=== PATIENT | male | born 1975 | race African-American/Black ===

== ENCOUNTER 2018-01-11 20:35 | Inpatient (IN) ==
[2018-01-11] MEDS ORDERED: VANCOMYCIN INJ 1,000 MG in SODIUM CHLORIDE 0.9% 250 ML IV STA (20:55)
[2018-01-11] MEDS ORDERED: ONDANSETRON 4 MG/2 ML VIAL IV STA (20:58)
[2018-01-11] MEDS ORDERED: SODIUM CHLORIDE 0.9% 1,000 ML IV STA (20:58)
[2018-01-11] MEDS ORDERED: VANCOMYCIN 1,000 MG VIAL ONE (21:02)
[2018-01-11] MEDS ORDERED: ONDANSETRON 4 MG/2 ML VIAL ONE (21:02)
[2018-01-11 21:52] LABS: Calcium 8.4 MG/DL (8.5-10.1); Osmolality,Calculated 276.4 MOS/KG (273-304); Potassium 3.7 MMOL/L (3.5-5.1)
[2018-01-11] MEDS ORDERED: DEXTROSE 50% 25 GM/50 ML VIAL IV PRN (22:10)
[2018-01-11] MEDS ORDERED: MORPHINE 4 MG/1 ML VIAL IV PRN (22:10)
[2018-01-11] MEDS ORDERED: GLUCAGON 1 MG VIAL IM PRN (22:10)
[2018-01-11] MEDS ORDERED: ATENOLOL PO SCH (22:15)
[2018-01-11] MEDS: SODIUM CHLORIDE 0.9% 1,000 ML IV SCH (23:42)
[2018-01-12] MEDS: PIPERACILLIN/TAZOBACTAM 3,375 MG in SODIUM CHLORIDE 0.9% 100 ML IV SCH ×3 (00:01→15:45)
[2018-01-12] MEDS: GLIMEPIRIDE 2 MG TABLET PO SCH ×3 (00:05→21:23)
[2018-01-12 06:39] LABS: Basophils % 0.2 % (0.0-0.8); Eosinophils # 0.2 10*3/uL (0.0-0.87); Eosinophils % 1.4 % (0.00-10.9); Hematocrit 33.8 VOL% (42.0-52.0); Hemoglobin 11.1 GM/DL (14.0-18.0); Immature Granulocytes % 0.7 %; Immature Granulocytes Absolute 0.08 #; Lymphocytes # 1.4 10*3/uL (1.4-4.0); Lymphocytes % 11.6 % (21.2-54.2); Mean Corpuscular HGB Conc 32.8 GM/DL (32-36); Mean Corpuscular Hemoglobin 26 PG (27-34); Mean Corpuscular Volume 78.2 FL (87-102); Mean Platelet Volume 12.5 FL (9.6-12.0); Monocytes % 8.2 % (1.7-12.7); Neutrophils # 9.1 10*3/uL (1.4-7.4); Neutrophils % 77.9 % (38.7-73.9); Platelet Count 189 T/CUMM (130-400); Red Blood Count 4.32 MC/CUMM (3.8-5.5); Red Cell Distribution Width 14.9 % (9.3-17.3); White Blood Count 11.6 T/CUMM (4-12)
[2018-01-12 07:10] LABS: Calcium 8.2 MG/DL (8.5-10.1); Potassium 3.6 MMOL/L (3.5-5.1)
[2018-01-12] MEDS: ENOXAPARIN 40 MG/0.4 ML SYRINGE SUBCUT SCH (09:50)
[2018-01-12] MEDS: PANTOPRAZOLE 40 MG TABLET PO SCH (09:50)
[2018-01-12] MEDS: GABAPENTIN 300 MG CAPSULE PO SCH (09:50)
[2018-01-12] MEDS: INSULIN LISPRO 100 UNIT/ML SUBCUT SCH ×4 (09:51→21:23)
[2018-01-12] MEDS: SODIUM CHLORIDE 0.9% 1,000 ML IV SCH ×2 (09:51→23:31)
[2018-01-12] MEDS: VANCOMYCIN INJ 1,750 MG in SODIUM CHLORIDE 0.9% 500 ML IV SCH ×2 (11:59→23:34)
[2018-01-12] MEDS: ATENOLOL 50 MG TABLET PO SCH (15:45)
[2018-01-13] MEDS: PIPERACILLIN/TAZOBACTAM 3,375 MG in SODIUM CHLORIDE 0.9% 100 ML IV SCH ×3 (02:26→18:30)
[2018-01-13] MEDS: INSULIN LISPRO 100 UNIT/ML SUBCUT SCH ×4 (08:48→21:00)
[2018-01-13] MEDS: ATENOLOL 50 MG TABLET PO SCH (08:49)
[2018-01-13] MEDS: GLIMEPIRIDE 2 MG TABLET PO SCH ×2 (09:07→20:59)
[2018-01-13] MEDS: ENOXAPARIN 40 MG/0.4 ML SYRINGE SUBCUT SCH (09:08)
[2018-01-13] MEDS: SODIUM CHLORIDE 0.9% 1,000 ML IV SCH ×2 (09:09→20:15)
[2018-01-13] MEDS: GABAPENTIN 300 MG CAPSULE PO SCH (09:09)
[2018-01-13] MEDS: PANTOPRAZOLE 40 MG TABLET PO SCH (09:09)
[2018-01-13] MEDS ORDERED: POLYETHYLENE GLYCOL POWDER 17 GM PACK PO PRN (10:51)
[2018-01-13 11:25] LABS: Osmolality,Calculated 274.2 MOS/KG (273-304); Potassium 3.8 MMOL/L (3.5-5.1)
[2018-01-13] MEDS: VANCOMYCIN INJ 1,750 MG in SODIUM CHLORIDE 0.9% 500 ML IV SCH ×2 (16:36→23:44)
[2018-01-13] MEDS ORDERED: fentaNYL 100 MCG/2 ML VIAL ONE (17:31)
[2018-01-13] MEDS ORDERED: PROPOFOL 200 MG/20 ML VIAL IV ONE (17:31)
[2018-01-13] MEDS ORDERED: ACETAMINOPHEN 1,000 MG/100 ML VIAL IV ONE (17:32)
[2018-01-13] MEDS ORDERED: SEVOFLURANE 1 UNIT/15 MINUTE INH ONE (17:32)
[2018-01-13] MEDS ORDERED: KETOROLAC 30 MG/1 ML VIAL ONE (17:32)
[2018-01-13] MEDS: INSULIN GLARGINE 100 UNIT/ML SUBCUT SCH (21:00)
[2018-01-14] MEDS: PIPERACILLIN/TAZOBACTAM 3,375 MG in SODIUM CHLORIDE 0.9% 100 ML IV SCH ×3 (02:51→21:11)
[2018-01-14] MEDS: SODIUM CHLORIDE 0.9% 1,000 ML IV SCH (04:19)
[2018-01-14] MEDS: VANCOMYCIN INJ 1,750 MG in SODIUM CHLORIDE 0.9% 500 ML IV SCH ×2 (08:33→16:46)
[2018-01-14] MEDS: INSULIN LISPRO 100 UNIT/ML SUBCUT SCH ×4 (08:33→21:11)
[2018-01-14] MEDS: GLIMEPIRIDE 2 MG TABLET PO SCH ×2 (08:34→21:10)
[2018-01-14] MEDS: ATENOLOL 50 MG TABLET PO SCH (08:34)
[2018-01-14] MEDS: PANTOPRAZOLE 40 MG TABLET PO SCH (08:34)
[2018-01-14] MEDS: ENOXAPARIN 40 MG/0.4 ML SYRINGE SUBCUT SCH (08:34)
[2018-01-14] MEDS: GABAPENTIN 300 MG CAPSULE PO SCH (08:34)
[2018-01-14] MEDS: amLODIPine 5 MG TABLET PO SCH (13:26)
[2018-01-14] MEDS: INSULIN GLARGINE 100 UNIT/ML SUBCUT SCH (21:12)
[2018-01-15] MEDS: PIPERACILLIN/TAZOBACTAM 3,375 MG in SODIUM CHLORIDE 0.9% 100 ML IV SCH ×3 (04:03→14:33)
[2018-01-15 08:10] LABS: Calcium 8.3 MG/DL (8.5-10.1); Free T4 (Free Thyroxine) 1.85 NG/DL (0.76-1.46); Osmolality,Calculated 288.7 MOS/KG (273-304); Potassium 4.4 MMOL/L (3.5-5.1); T4 (Thyroxine) 12.8 UG/DL (4.7-13.3); Thyroid Stimulating Hormone 1.17 uIU/ml (0.358-3.74)
[2018-01-15] MEDS ORDERED: SODIUM CHLORIDE 0.9% 1,000 ML IV SCH (09:00)
[2018-01-15] MEDS: GABAPENTIN 300 MG CAPSULE PO SCH (09:07)
[2018-01-15] MEDS: amLODIPine 5 MG TABLET PO SCH (09:08)
[2018-01-15] MEDS: ATENOLOL 50 MG TABLET PO SCH (09:09)
[2018-01-15] MEDS: INSULIN LISPRO 100 UNIT/ML SUBCUT SCH ×4 (09:10→20:49)
[2018-01-15] MEDS: PANTOPRAZOLE 40 MG TABLET PO SCH (09:10)
[2018-01-15] MEDS: GLIMEPIRIDE 2 MG TABLET PO SCH ×2 (09:10→16:31)
[2018-01-15] MEDS: ENOXAPARIN 40 MG/0.4 ML SYRINGE SUBCUT SCH (09:11)
[2018-01-15 14:28] LABS: Calcium 7.8 MG/DL (8.5-10.1); Osmolality,Calculated 291.8 MOS/KG (273-304); Potassium 4.5 MMOL/L (3.5-5.1)
[2018-01-15] MEDS ORDERED: MEROPENEM 1,000 MG in SYRINGE 1 EACH IV SCH (15:00)
[2018-01-15] MEDS: MEROPENEM 1,000 MG in SYRINGE 1 EACH IV SCH (16:33)
[2018-01-15] MEDS: SODIUM CHLORIDE 0.9% 1,000 ML IV SCH (16:35)
[2018-01-15 17:24] LABS: Apearance,Urine CLEAR (Clear); Bilirubin,Urine Negative (Negative); Blood, Urine Large mg/dL (Negative); Glucose,Urine (UA) 150 mg/dL (Negative); Ketones,Urine Negative (Negative); Nitrite,Urine Negative (Negative); Protein,Urine 30 MG/DL; RBC,Urine 8 /HPF (0-4); Squamous Epithelial Cell,Urine Occasional /HPF (0-10); Urine Color Straw (Yellow); Urine Specific Gravity 1.004 (1.001-1.035); Urine Urobilinogen < 2.0 EU/DL (0.2-1.0); WBC,Urine 1 /HPF (0-6)
[2018-01-15] MEDS: ONDANSETRON 4 MG/2 ML VIAL IV PRN (18:10)
[2018-01-15] MEDS: hydrALAZINE 20 MG/1 ML VIAL IV PRN (18:10)
[2018-01-15] MEDS: INSULIN GLARGINE 100 UNIT/ML SUBCUT SCH (20:50)
[2018-01-16] MEDS: SODIUM CHLORIDE 0.9% 1,000 ML IV SCH ×2 (04:50→16:56)
[2018-01-16 06:56] LABS: Basophils % 0.3 % (0.0-0.8); Eosinophils # 0.1 10*3/uL (0.0-0.87); Eosinophils % 1.1 % (0.00-10.9); Hematocrit 33.6 VOL% (42.0-52.0); Hemoglobin 10.3 GM/DL (14.0-18.0); Immature Granulocytes % 1.7 %; Lymphocytes # 1.8 10*3/uL (1.4-4.0); Lymphocytes % 15.4 % (21.2-54.2); Mean Corpuscular HGB Conc 30.7 GM/DL (32-36); Mean Corpuscular Hemoglobin 25 PG (27-34); Mean Corpuscular Volume 81.4 FL (87-102); Mean Platelet Volume 12.2 FL (9.6-12.0); Monocytes # 0.9 10*3/uL (0.11-0.8); Monocytes % 7.8 % (1.7-12.7); Neutrophils # 8.8 10*3/uL (1.4-7.4); Neutrophils % 73.7 % (38.7-73.9); Platelet Count 251 T/CUMM (130-400); Red Blood Count 4.13 MC/CUMM (3.8-5.5); Red Cell Distribution Width 15.4 % (9.3-17.3); White Blood Count 11.9 T/CUMM (4-12)
[2018-01-16 07:14] LABS: Lymphocytes 15 % (20-55); Segmented Neutrophils 78 % (50-85); Total Cells Counted 100
[2018-01-16 07:15] LABS: Giant Platelets Few; Hypochromasia 1+; Microcytosis Slight; Ovalocytes Slight; Platelet Estimate Adequate
[2018-01-16 07:45] LABS: Calcium 8.5 MG/DL (8.5-10.1); Osmolality,Calculated 292.5 MOS/KG (273-304); Potassium 4.6 MMOL/L (3.5-5.1)
[2018-01-16] MEDS: ATENOLOL 50 MG TABLET PO SCH (08:22)
[2018-01-16] MEDS: amLODIPine 5 MG TABLET PO SCH (08:22)
[2018-01-16] MEDS: ENOXAPARIN 30 MG/0.3 ML SYRINGE SUBCUT SCH (08:22)
[2018-01-16] MEDS: PANTOPRAZOLE 40 MG TABLET PO SCH (08:22)
[2018-01-16] MEDS: INSULIN LISPRO 100 UNIT/ML SUBCUT SCH ×4 (08:23→20:51)
[2018-01-16] MEDS ORDERED: LIDOCAINE 1% 50 ML VIAL ONE (09:58)
[2018-01-16] MEDS ORDERED: SEVOFLURANE 1 UNIT/15 MINUTE INH ONE (12:09)
[2018-01-16] MEDS ORDERED: ONDANSETRON 4 MG/2 ML VIAL ONE (12:09)
[2018-01-16] MEDS ORDERED: fentaNYL 100 MCG/2 ML VIAL ONE (12:09)
[2018-01-16] MEDS ORDERED: MIDAZOLAM 2 MG/2 ML VIAL ONE (12:09)
[2018-01-16] MEDS ORDERED: PROPOFOL 200 MG/20 ML VIAL IV ONE (12:09)
[2018-01-16] MEDS: GLIMEPIRIDE 2 MG TABLET PO SCH ×2 (13:18→16:55)
[2018-01-16] MEDS: GABAPENTIN 300 MG CAPSULE PO SCH (13:18)
[2018-01-16] MEDS ORDERED: GLUCAGON 1 MG VIAL IM PRN (14:12)
[2018-01-16] MEDS ORDERED: DEXTROSE 50% 25 GM/50 ML VIAL IV PRN (14:12)
[2018-01-16] MEDS: MEROPENEM 1,000 MG in SYRINGE 1 EACH IV SCH (15:10)
[2018-01-16] MEDS ORDERED: INSULIN GLARGINE 100 UNIT/ML SUBCUT SCH (21:00)
[2018-01-17] MEDS: SODIUM CHLORIDE 0.9% 1,000 ML IV SCH ×2 (06:01→19:21)
[2018-01-17 06:32] LABS: Basophils % 0.2 % (0.0-0.8); Eosinophils # 0.2 10*3/uL (0.0-0.87); Eosinophils % 1.6 % (0.00-10.9); Hematocrit 34.1 VOL% (42.0-52.0); Hemoglobin 10.7 GM/DL (14.0-18.0); Immature Granulocytes % 1.8 %; Immature Granulocytes Absolute 0.18 #; Lymphocytes # 1.7 10*3/uL (1.4-4.0); Lymphocytes % 16.5 % (21.2-54.2); Mean Corpuscular HGB Conc 31.4 GM/DL (32-36); Mean Corpuscular Hemoglobin 25 PG (27-34); Mean Corpuscular Volume 79.9 FL (87-102); Mean Platelet Volume 12.2 FL (9.6-12.0); Monocytes # 0.7 10*3/uL (0.11-0.8); Monocytes % 7.1 % (1.7-12.7); Neutrophils # 7.3 10*3/uL (1.4-7.4); Neutrophils % 72.8 % (38.7-73.9); Platelet Count 272 T/CUMM (130-400); Red Blood Count 4.27 MC/CUMM (3.8-5.5); Red Cell Distribution Width 15.5 % (9.3-17.3)
[2018-01-17 06:54] LABS: Burr Cells Slight; Giant Platelets Few; Hypochromasia Slight; Microcytosis Slight; Ovalocytes Slight; Platelet Estimate Adequate
[2018-01-17 07:07] LABS: Calcium 8.1 MG/DL (8.5-10.1); Osmolality,Calculated 295.4 MOS/KG (273-304); Potassium 4.7 MMOL/L (3.5-5.1)
[2018-01-17] MEDS: INSULIN LISPRO 100 UNIT/ML SUBCUT SCH ×4 (08:48→21:02)
[2018-01-17] MEDS: GLIMEPIRIDE 2 MG TABLET PO SCH ×2 (08:49→16:28)
[2018-01-17] MEDS: PANTOPRAZOLE 40 MG TABLET PO SCH (08:49)
[2018-01-17] MEDS: amLODIPine 5 MG TABLET PO SCH (08:49)
[2018-01-17] MEDS: ATENOLOL 50 MG TABLET PO SCH (08:50)
[2018-01-17] MEDS: SODIUM HYPOCHLORITE 0.25% IRRIG 473 ML BOTTLE TOP SCH (12:08)
[2018-01-17] MEDS: GABAPENTIN 300 MG CAPSULE PO SCH (12:21)
[2018-01-17] MEDS: ENOXAPARIN 30 MG/0.3 ML SYRINGE SUBCUT SCH (12:24)
[2018-01-17] MEDS: MEROPENEM 1,000 MG in SYRINGE 1 EACH IV SCH (14:46)
[2018-01-17] MEDS ORDERED: INSULIN GLARGINE 100 UNIT/ML SUBCUT SCH (17:16)
[2018-01-17] MEDS: ONDANSETRON 4 MG/2 ML VIAL IV PRN (17:38)
[2018-01-18] MEDS: ALUMINUM/MAGNES/SIMETH MAX STR 30 ML UDCUP PO PRN ×2 (01:10→08:31)
[2018-01-18 06:39] LABS: Basophils % 0.4 % (0.0-0.8); Eosinophils # 0.2 10*3/uL (0.0-0.87); Eosinophils % 1.7 % (0.00-10.9); Hematocrit 35.5 VOL% (42.0-52.0); Hemoglobin 10.8 GM/DL (14.0-18.0); Immature Granulocytes % 1.9 %; Immature Granulocytes Absolute 0.21 #; Lymphocytes # 1.8 10*3/uL (1.4-4.0); Lymphocytes % 16.6 % (21.2-54.2); Mean Corpuscular HGB Conc 30.4 GM/DL (32-36); Mean Corpuscular Hemoglobin 25 PG (27-34); Mean Corpuscular Volume 81.2 FL (87-102); Mean Platelet Volume 11.7 FL (9.6-12.0); Monocytes # 0.8 10*3/uL (0.11-0.8); Monocytes % 7.3 % (1.7-12.7); Neutrophils % 72.1 % (38.7-73.9); Platelet Count 307 T/CUMM (130-400); Red Blood Count 4.37 MC/CUMM (3.8-5.5); Red Cell Distribution Width 15.2 % (9.3-17.3); White Blood Count 11.1 T/CUMM (4-12)
[2018-01-18 07:02] LABS: Band Neutrophils 1 % (0-10); Eosinophils 1 % (0-10); Lymphocytes 12 % (20-55); Platelet Estimate Adequate; Polychromasia Slight; Segmented Neutrophils 82 % (50-85); Total Cells Counted 100
[2018-01-18 07:11] LABS: Calcium 8.1 MG/DL (8.5-10.1); Osmolality,Calculated 296.1 MOS/KG (273-304); Potassium 4.9 MMOL/L (3.5-5.1)
[2018-01-18] MEDS: GLIMEPIRIDE 2 MG TABLET PO SCH (08:32)
[2018-01-18] MEDS: GABAPENTIN 300 MG CAPSULE PO SCH (08:32)
[2018-01-18] MEDS: INSULIN LISPRO 100 UNIT/ML SUBCUT SCH ×5 (08:32→21:47)
[2018-01-18] MEDS: ATENOLOL 50 MG TABLET PO SCH (08:32)
[2018-01-18] MEDS: PANTOPRAZOLE 40 MG TABLET PO SCH (08:32)
[2018-01-18] MEDS: amLODIPine 10 MG TABLET PO SCH (08:32)
[2018-01-18] MEDS: ENOXAPARIN 30 MG/0.3 ML SYRINGE SUBCUT SCH (08:33)
[2018-01-18] MEDS: SODIUM CHLORIDE 0.9% 1,000 ML IV SCH (08:36)
[2018-01-18] MEDS: SODIUM HYPOCHLORITE 0.25% IRRIG 473 ML BOTTLE TOP SCH (13:37)
[2018-01-18] MEDS: MEROPENEM 1,000 MG in SYRINGE 1 EACH IV SCH (15:26)
[2018-01-18] MEDS: INSULIN GLARGINE 100 UNIT/ML SUBCUT SCH (21:48)
[2018-01-19] MEDS: hydrALAZINE 20 MG/1 ML VIAL IV PRN (03:16)
[2018-01-19 04:08] LABS: Basophils # 0.1 10*3/uL (0.0-0.2); Basophils % 0.4 % (0.0-0.8); Eosinophils # 0.2 10*3/uL (0.0-0.87); Eosinophils % 2.2 % (0.00-10.9); Hematocrit 36.4 VOL% (42.0-52.0); Hemoglobin 11.3 GM/DL (14.0-18.0); Immature Granulocytes % 2.2 %; Immature Granulocytes Absolute 0.24 #; Lymphocytes # 1.7 10*3/uL (1.4-4.0); Lymphocytes % 15.6 % (21.2-54.2); Mean Corpuscular Hemoglobin 25 PG (27-34); Mean Corpuscular Volume 80.2 FL (87-102); Mean Platelet Volume 11.5 FL (9.6-12.0); Monocytes # 0.7 10*3/uL (0.11-0.8); Monocytes % 6.5 % (1.7-12.7); Neutrophils # 8.1 10*3/uL (1.4-7.4); Neutrophils % 73.1 % (38.7-73.9); Platelet Count 355 T/CUMM (130-400); Red Blood Count 4.54 MC/CUMM (3.8-5.5); Red Cell Distribution Width 15.1 % (9.3-17.3); White Blood Count 11.1 T/CUMM (4-12)
[2018-01-19 04:28] LABS: Calcium 8.7 MG/DL (8.5-10.1); Osmolality,Calculated 290.7 MOS/KG (273-304); Potassium 4.9 MMOL/L (3.5-5.1)
[2018-01-19 05:49] LABS: Eosinophils 3 % (0-10); Lymphocytes 22 % (20-55); Platelet Estimate Normal; Segmented Neutrophils 68 % (50-85); Total Cells Counted 100
[2018-01-19] MEDS: amLODIPine 10 MG TABLET PO SCH (08:44)
[2018-01-19] MEDS: INSULIN LISPRO 100 UNIT/ML SUBCUT SCH ×7 (08:45→21:15)
[2018-01-19] MEDS: ATENOLOL 50 MG TABLET PO SCH (08:45)
[2018-01-19] MEDS: ENOXAPARIN 30 MG/0.3 ML SYRINGE SUBCUT SCH (08:45)
[2018-01-19] MEDS: PANTOPRAZOLE 40 MG TABLET PO SCH ×2 (08:45→21:16)
[2018-01-19] MEDS: GABAPENTIN 300 MG CAPSULE PO SCH (08:45)
[2018-01-19] MEDS: SODIUM HYPOCHLORITE 0.25% IRRIG 473 ML BOTTLE TOP SCH (12:46)
[2018-01-19] MEDS: MEROPENEM 1,000 MG in SYRINGE 1 EACH IV SCH (16:16)
[2018-01-19] MEDS: ALUMINUM/MAGNES/SIMETH MAX STR 30 ML UDCUP PO PRN (16:16)
[2018-01-19] MEDS: INSULIN GLARGINE 100 UNIT/ML SUBCUT SCH (21:16)
[2018-01-20] MEDS: ALUMINUM/MAGNES/SIMETH MAX STR 30 ML UDCUP PO PRN ×2 (08:10→21:38)
[2018-01-20] MEDS: ATENOLOL 50 MG TABLET PO SCH (08:10)
[2018-01-20] MEDS: PANTOPRAZOLE 40 MG TABLET PO SCH ×2 (08:10→21:38)
[2018-01-20] MEDS: GABAPENTIN 300 MG CAPSULE PO SCH (08:10)
[2018-01-20] MEDS: amLODIPine 10 MG TABLET PO SCH (08:10)
[2018-01-20] MEDS: ENOXAPARIN 30 MG/0.3 ML SYRINGE SUBCUT SCH (08:11)
[2018-01-20] MEDS: INSULIN LISPRO 100 UNIT/ML SUBCUT SCH ×7 (08:11→21:38)
[2018-01-20] MEDS: SODIUM HYPOCHLORITE 0.25% IRRIG 473 ML BOTTLE TOP SCH (11:25)
[2018-01-20] MEDS: MEROPENEM 1,000 MG in SYRINGE 1 EACH IV SCH (17:03)
[2018-01-20] MEDS: INSULIN GLARGINE 100 UNIT/ML SUBCUT SCH (21:38)
[2018-01-21 05:34] LABS: Osmolality,Calculated 294.5 MOS/KG (273-304); Potassium 4.9 MMOL/L (3.5-5.1)
[2018-01-21] MEDS: INSULIN LISPRO 100 UNIT/ML SUBCUT SCH ×4 (07:58→12:06)
[2018-01-21] MEDS: amLODIPine 10 MG TABLET PO SCH (07:59)
[2018-01-21] MEDS: ATENOLOL 50 MG TABLET PO SCH (07:59)
[2018-01-21] MEDS: GABAPENTIN 300 MG CAPSULE PO SCH (07:59)
[2018-01-21] MEDS: PANTOPRAZOLE 40 MG TABLET PO SCH (07:59)
[2018-01-21] MEDS: ENOXAPARIN 30 MG/0.3 ML SYRINGE SUBCUT SCH (08:00)
[2018-01-21] MEDS: SODIUM HYPOCHLORITE 0.25% IRRIG 473 ML BOTTLE TOP SCH (08:00)
[2018-01-21 12:26] VITALS: BP 144/89
[2018-01-21] MEDS: MEROPENEM 1,000 MG in SYRINGE 1 EACH IV SCH (14:03)
== END 2018-01-21 17:11 | disposition home health service (06) | DRG 854 ==
LOC: N.ED 20:35 → N.EDINP 22:09 → SUATTDRO 22:09 → N.5E 22:45
PROVIDERS: ADMIT Internal Medicine Infectious Disease; ATTEND Internal Medicine